=== PATIENT | female | born 1970 | race Caucasian/White ===

== ENCOUNTER 2018-09-27 08:49 | Emergency (ER) | payer MEDICARE, MEDICAID ==
[2018-09-27] MEDS ORDERED: NS 0.9% 1000 ML** 1,000 ML IV ONE (08:50)
--- NOTE | 2018-09-27 08:56 | ED ---
Neurological HPI - HPI Summary HPI Summary: ED provider met patient and EMS at bedside upon arrival in room 16. LEVEL 5 CAVEAT: HPI LIMITED DUE TO PATIENT CONDITION, UNRESPONSIVE. A 48 y/o F presents to ED mostly unresponsive s/p LOC. Per EMS: Pt has had no recent illness nor trauma, but has had a BEEBE for past 5 days. En route, her BP was 140s/90s and O2 sat was 100% on room air. Her pupils were sluggish and mildly dilated. Pt is responsive to painful stimuli, family says she walked to the living room at approx 0740. Per family, pt has L-sided weakness due to a fall and neck injury at 5 years of age. Her last migraine was in June 2018. She's been taking migraine medication since. Other medications include Lamictal. Family lives with her. She walked from the bathroom to the living room and became unresponsive sitting on the sofa, where family found her. Associated sx: vomiting. She sees Dr. Nuno, neurologist. The family did notify him this AM. PMHx: migraines, sz. 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, EMS Onset/Duration: Still Present Timing: Constant Current Severity: Severe Character: Other: - unresponsive Associated Signs and Symptoms: Positive: Nausea/Vomiting - Allergy/Home Medications Allergies/Adverse Reactions: Allergies Allergy/AdvReac Type Severity Reaction Status Date / Time No Known Allergies Allergy Verified 07/16/18 10:10 Home Medications: Home Medications Lacosamide TAB* [Vimpat TAB*] 50 mg PO BID 09/27/18 [History Confirmed 09/27/18] SUMAtriptan TAB* [Imitrex TAB*] 50 mg PO DAILY PRN 09/27/18 [History Confirmed 09/27/18] PMH/Surg Hx/FS Hx/Imm Hx Previously Healthy: No Endocrine/Hematology History: Denies: Hx Diabetes Cardiovascular History: Denies: Hx Hypertension, Hx Pacemaker/ICD History: Denies: Hx Dialysis, Hx Renal Disease Sensory History: Denies: Hx Hearing Aid Neurological History: Reports: Hx Migraine, Hx Seizures Psychiatric History: Denies: Hx Panic Disorder - Cancer History Hx Chemotherapy: No Hx Radiation Therapy: No - Surgical History Surgery Procedure, Year, and Place: LEFT FOOT SX - Family History Family History: neg: Breast CA - Social History Occupation: Employed Full-time Lives: With Family Review of Systems - ROS Summary Review of Systems Summary: LEVEL 5 CAVEAT: ROS LIMITED DUE TO PATIENT CONDITION, UNRESPONSIVE. Positive: Vomiting Positive: Syncope - LOC All Other Systems Reviewed And Are Negative: No Physical Exam - Summary Physical Exam Summary: VITAL SIGNS: Reviewed. GENERAL: Patient is a well-developed and nourished FEMALE who is unresponsive in stretcher. Patient is not in any acute respiratory distress. HEAD AND FACE: No signs of trauma. No ecchymosis, hematomas or skull depressions. No sinus tenderness. EYES: Pupils are reactive. No injected conjunctiva, no nystagmus. EARS: Hearing grossly intact. Ear canals and tympanic membranes are within normal limits. MOUTH: Oropharynx within normal limits. NECK: Supple, trachea is midline, no adenopathy, no JVD, no carotid bruit, no c- spine tenderness, neck with full ROM. No meningeal signs, no Kernig's or Brudzinskis signs. CHEST: Symmetric, no tenderness at palpation LUNGS: Clear to auscultation bilaterally. No wheezing or crackles. CVS: Regular rate and rhythm, S1 and S2 present, no murmurs or gallops appreciated. ABDOMEN: Soft, non-tender. No signs of distention. No rebound, no guarding, and no masses palpated. Bowel sounds are normal. EXTREMITIES: FROM in all major joints, no edema, no cyanosis or clubbing. NEURO: Unresponsive. L-sided weakness with LUE and LLE muscular atrophy secondary to her chronic weakness. Does not follow commands. Responsive to painful stimuli. SKIN: Dry and warm GCS: 9 Triage Information Reviewed: Yes Vital Signs Reviewed: Yes Diagnostics - Laboratory Result Diagrams: 09/27/18 09:08 09/27/18 09:08 Lab Statement: Any lab studies that have been ordered have been reviewed, and results considered in the medical decision making process. - Radiology CXR Radiology Interpretation Completed By: Radiologist Summary of Radiographic Findings: IMPRESSION: #. No evidence for acute intrathoracic disease. ED provider has reviewed this report. - CT BRAIN CT Interpretation Completed By: Radiologist Summary of CT Findings: IMPRESSION: #. No CT evidence for intracranial hemorrhage or acute intracranial process. #. 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 ED provider has reviewed this report. - EKG 0818 Cardiac Rate: NL - 82 bpm EKG Rhythm: Sinus Rhythm Summary of EKG Findings: No ST elevation. NIH Scale - NIH Scale Level of Consciousness: Repeated or Painful Stimulation Ask Patient the Month and His/Her Age: Neither Correct/Aphasic Ask Pt to Open/Close Eyes and Leather Coater/Release Non-Paretic Hand: Neither Correctly Best Gaze (Only Horizontal Eye Movement): Normal Visual Field Testing: No Visual Loss - unable to assess Facial Paresis-Pt to Smile & Close Eyes or Grimace Symmetry: Normal/Symmetrical Motor Function - Right Arm: No Drift-Holds 10 Seconds Motor Function - Left Arm: No Movement Motor Function - Right Leg: No Drift-Holds 10 Seconds Motor Function - Left Leg: No Movement Limb Ataxia-Must be out of Proportion to Weakness Present: Present in Two Limbs Sensory (Use Pinprick to Test Arms/Legs/Trunk/Face): Severe to Total Loss - unable to assess Best Language (Describe Picture, Name Items): Mute/Global Aphasia Dysarthria (Read Several Words): Unintelligible or Mute Extinction and Inattention: Inattention Total Score: 24 NIH Stroke Scale Comment: Patient does not follow commands, is unresponsive. Re-Evaluation - Re-Evaluation 1 Re-Evaluation Time: 11:00 Change: Improved Comment: Pt is now A&Ox3. Pt c/o BEEBE rated 7 out of 10. 2 Re-Evaluation Time: 13:45 Change: Improved Comment: Pt is feeling better, will d/c home. Course/Dx - Course Assessment/Plan: This patient is a 48-year-old female who presents to the emergency room via ambulance with a chief complaint of a syncopal episode versus a seizure episode. EMS reports that the patient may have had a seizure episode this morning. However the family members report that she woke up and was complaining of a headache. The patient is complaining of a headache for approximately one week. The patient has history of migraine headaches. She woke up with a headache and then she was found on the couch unresponsive and they have not seen any type of seizures. In the ED course, the patient continues to be unresponsive. She is only responsive to painful stimuli. She has her left-sided weakness which family members report that is chronic since she was 5 years old. She also has atrophy of the left upper extremity and left lower extremity. Because the patient had a left-sided weakness and we did not have more information, we called a Code Arango. However, as the family members explained, the patient had a left-sided weakness chronically since she was 5 years old, we discontinued the code mcneal. At approximately 10:30 the patient is alert and oriented. Initially she was in a postictal state. We did send levels for lamotrigine and Vimpat. Head CT IMPRESSION: #. No CT evidence for intracranial hemorrhage or acute intracranial process. #. 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 CXR IMPRESSION: #. No evidence for acute intrathoracic disease. Patient continues to have a headache therefore the patient was given IV fluids, Toradol, Reglan and Benadryl. After an hour and reassessed the patient and she continues to have a headache therefore the patient was given 1 dose of fentanyl. After these medications of her symptoms have resolved. I discussed my physical exam and findings with Dr. Devlin, neuro, who doesnt want to have any changes in medications he only recommended to follow-up with Dr. Nuno, neuro, next week. I discussed the findings, test results and recommendations from Dr. Devlin with the patient and the patients sister and they also agree. Therefore the patient will be discharged home with follow-up with Dr. Nuno. The patient is hemodynamically stable alert and oriented 3. - Diagnoses Provider Diagnoses: Seizure During the Visit The Following Alert/Code Occurred: Code Arango - CODE MCNEAL: Called at 0748. (DST not implemented in ED clocks, true time is 08:48am.) - Physician Notifications Discussed Care Of Patient With: Paco Quinteros - radiology Time Discussed With Above Provider: 09:14 Instructed by Provider To: Other - Discussing CT results. Discharge - Sign-Out/Discharge Documenting (check all that apply): Patient Departure - D/C Patient Received Moderate/Deep Sedation with Procedure: No - Discharge Plan Condition: Stable Disposition: HOME Prescriptions: Ondansetron TAB* [Zofran 4 MG Tab*] 4 mg PO Q8HR PRN #10 tab PRN Reason: Nausea Patient Education Materials: Recurrent Seizures in Adults (ED) Referrals: Rivas Wallace MD [Medical Doctor] - Additional Instructions: Follow up with your neurologist, Dr. Nuno, in 2-3 days. Continue taking your current medications as prescribed. RETURN TO THE ED FOR ANY WORSENING OR NEW SYMPTOMS. - Billing Disposition and Condition Condition: STABLE Disposition: Home - Attestation Statements Document Initiated by Chris: Yes Documenting Scribe: Gilson Perdomo Provider For Whom Nataliaibe is Documenting (Include Credential): Dr. Paco Decker MD Scribe Attestation: I, Gilson Perdomo, scribed for Dr. Paco Decker MD on 09/27/18 at 1829. Scribe Documentation Reviewed: Yes Provider Attestation: The documentation as recorded by the Gilson roberts accurately reflects the service I personally performed and the decisions made by me, Dr. Paco Decker MD Status of Scribe Document: Viewed Consult Consult: 1303: Consult with Dr. Devlin, neuro Recommends opiates and see if her migraine improves. No neuro recommendations, continue with same medications.
[2018-09-27 09:17] LABS: Hematocrit 43 % (35-47); Hemoglobin 14.3 g/dl (12.0-16.0); Mean Corpuscular HGB Conc 33 g/dl (31-36); Mean Corpuscular Hemoglobin 27 pg (27-31); Mean Corpuscular Volume 81 fL (80-97); Mean Platelet Volume 9.3 fL (7.4-10.4); Platelet Count 186 10^3/ul (150-450); Red Blood Count 5.39 10^6/ul (4.00-5.40); Red Cell Distribution Width 14 % (10.5-15); White Blood Count 4.6 10^3/ul (3.5-10.8)
[2018-09-27 09:27] LABS: Activated Partial Thrombo Time 29.2 seconds (26.0-36.3); INR 0.99 (0.77-1.02)
[2018-09-27 09:37] LABS: Albumin 4.3 g/dL (3.2-5.2); Albumin/Globulin Ratio 1.2 (1-3); BUN/Creatinine Ratio 13.3 (8-20); Calcium 9.3 mg/dL (8.6-10.3); EGFR African American 100.7 (>60); EGFR Non-African American 83.2 (>60); Globulin 3.5 g/dL (2-4); HDL Cholesterol 108.9 mg/dL; Potassium 3.5 mmol/L (3.5-5.0); Total Bilirubin 0.5 mg/dL (0.2-1.0); Total Protein 7.8 g/dL (6.4-8.9)
[2018-09-27 10:05] LABS: ABS Basophils 0 10^3/ul (0-0.2); ABS Eosinophils 0.2 10^3/ul (0-0.6); ABS Monocytes 0.2 10^3/ul (0-0.8); ABS Neutrophils 3.1 10^3/ul (1.5-7.7); ABS Nucleated RBC 0 10^3/ul; Eosinophil % 4.7 %; Lymphocyte % 22.7 %; Nucleated Red Blood Cells % 0
[2018-09-27 10:26] LABS: Urine Appearance Cloudy; Urine Bacteria Absent (Absent); Urine Bilirubin Negative (Negative); Urine Blood 3+ (Negative); Urine Color Yellow; Urine Glucose Negative (Negative); Urine Ketones Trace (Negative); Urine Nitrite Negative (Negative); Urine Protein Negative (Negative); Urine Red Blood Cell 3+(>10/hpf) (Absent); Urine Specific Gravity 1.008 (1.010-1.030); Urine Squamous Epithelial Cell Present (Absent); Urine Urobilinogen Negative (Negative); Urine White Blood Cell Trace(0-5/hpf) (Absent)
[2018-09-27] MEDS ORDERED: Metoclopramide IV* 5 MG/ML 2 ML VIAL IV PRN (11:00)
[2018-09-27] MEDS ORDERED: Ketorolac INJ* 30 MG/ML 1 ML VIAL IV PUSH ONE (11:00)
[2018-09-27] MEDS ORDERED: fentaNYL* 50 MCG/ML 2 ML VIAL (100 MCG VIAL) IV SLOW PU ONE (12:53)
[2018-09-27 15:02] VITALS: BP 130/90
[2018-09-27] MEDS ORDERED: Ondansetron ODT TAB* 4 MG ONE (15:05)
[2018-09-27] MEDS ORDERED: Ondansetron ODT TAB* 4 MG SL PRN (15:05)
[2018-09-30 12:59] LABS: Lacosamide 3.3 mcg/mL (1.0 - 10.0)
[2018-09-30 15:16] LABS: Lamotrigine 26.3 mcg/mL (2.5 - 15.0)
== END 2018-09-27 15:01 | disposition home or self-care (01) ==
LOC: ED 08:49
DX: G40.909 Epilepsy, unspecified, not intractable, without status epilepticus (principal)
CPT/HCPCS: 36415; 70450; 71045; 80053; 80061; 80175; 80299; 81003; 81015; 83605; 84484; 85025; 85610; 85730; 86850; 86900; 86901; 87086; 93005; 96361; 96374; 96375; 99285; A9270-GY; J1885; J2765; J3010

== ENCOUNTER 2018-09-28 10:10 | Emergency (ER) | payer MEDICARE, MEDICAID ==
--- NOTE | 2018-09-28 12:34 | ED ---
Headache - HPI Summary HPI Summary: Pt. is a 48 y.o female who presents to the ER for ongoing headache. Pt. has a hx of remote neck injury, chronic left sided weakness, seizure d/o, and migraines. Pt. was seen in the ED yesterday for similar symptoms. Yesterday, pt. had labs and brain ct which were all unremarkable. She was given migraine cocktail, was feeling better and dc home. Family state that she started with h/ a last night and vomiting. She has been unable to tolerate seizure medications. Pt.'s follows with Dr. Nuno neuro., outpt. Family called office and was informed to come to ED to see Dr. Devlin. SXs are moderate in severity. NO current modifying factors. No report of recent illness, fever, neck pain, abd. pain, urinary sxs. - History Of Current Complaint Chief Complaint: EDHeadache Stated Complaint: "REALLY BAD MIGRAINE" PER PT SISTER Time Seen by Provider: 09/28/18 12:31 Hx Obtained From: Family/Activity Therapy Specialist - Allergies/Home Medications Allergies/Adverse Reactions: Allergies Allergy/AdvReac Type Severity Reaction Status Date / Time No Known Allergies Allergy Verified 07/16/18 10:10 PMH/Surg Hx/FS Hx/Imm Hx Previously Healthy: Yes Endocrine/Hematology History: Denies: Hx Diabetes Cardiovascular History: Reports: Other Cardiovascular Problems/Disorders - HX OF SEIZURES Denies: Hx Hypertension, Hx Pacemaker/ICD History: Denies: Hx Dialysis, Hx Renal Disease Sensory History: Denies: Hx Hearing Aid Neurological History: Reports: Hx Migraine, Hx Seizures Psychiatric History: Denies: Hx Panic Disorder - Cancer History Hx Chemotherapy: No Hx Radiation Therapy: No - Surgical History Surgery Procedure, Year, and Place: LEFT FOOT SX Infectious Disease History: No Infectious Disease History: Denies: Traveled Outside the [place] in Last 30 Days - Family History Known Family History: Positive: Non-Contributory Family History: neg: Breast CA - Social History Occupation: Unemployed Lives: With Family Alcohol Use: None Substance Use Type: Reports: None Smoking Status (MU): Never Smoked Tobacco Review of Systems Constitutional: Negative Negative: Fever Eyes: Negative ENT: Negative Cardiovascular: Negative Respiratory: Negative Positive: Vomiting, Nausea. Negative: Abdominal Pain Genitourinary: Negative Musculoskeletal: Negative Skin: Negative Positive: Headache All Other Systems Reviewed And Are Negative: Yes Physical Exam Triage Information Reviewed: Yes Vital Signs On Initial Exam: Initial Vitals Temp Pulse Resp BP Pulse Ox 97.8 F 84 18 138/97 99 09/28/18 10:15 09/28/18 10:15 09/28/18 10:15 09/28/18 10:15 09/28/18 10:15 Vital Signs Reviewed: Yes Appearance: Positive: Well-Appearing - Pt. lying in bed in NAD. Chronic weakness and muslce wasting to left side. Family present. Skin: Positive: Warm, Dry Head/Face: Positive: Normal Head/Face Inspection Eyes: Positive: EOMI, Other: - chronic dilated pupil on Left Neck: Positive: Supple. Negative: Nuchal Rigidity Respiratory/Lung Sounds: Positive: Clear to Auscultation, Breath Sounds Present Cardiovascular: Positive: Normal, RRR Musculoskeletal: Positive: Other - Chronic weakness and atrophy on left Neurological: Positive: Normal, CN Intact II-III Psychiatric: Positive: Affect/Mood Appropriate Diagnostics - Vital Signs Vital Signs Temp Pulse Resp BP Pulse Ox 09/28/18 12:11 97.2 F 75 18 150/97 98 09/28/18 10:15 97.8 F 84 18 138/97 99 - Laboratory Lab Statement: Any lab studies that have been ordered have been reviewed, and results considered in the medical decision making process. Headache Course/Dx - Course Course Of Treatment: Pt. presenting for ongoing headaches and N/V. She is afebril with stable VS. She has no new neurological deficits on exam. Dr. Devlin, neurologist, was consulted and examined pt. in the ED. He is concered with ongoing vomiting and inability to take seizure medications. Pt. given IV fluids, zofran, magnesium and toradol per Dr. Devlin. Pt. did seem to have good relief of her h/a. She is tolerating PO fluids in ED and has had no further vomiting. Pt. reassessed by Dr. Devlin. He would like pt. dc home and started on topimax. To continue all other home medications. Pt. will f.u with Dr. Nuno outpt. To return to ER if sxs change or worsen. Family understands and agrees with plan. - Diagnoses Differential Diagnosis/HQI/PQRI: Meningitis, Migraine, Viral Syndrome Provider Diagnoses: Cephalgia Discharge - Sign-Out/Discharge Documenting (check all that apply): Patient Departure Patient Received Moderate/Deep Sedation with Procedure: No - Discharge Plan Condition: Improved Disposition: HOME Prescriptions: Topiramate TAB(*) [Topamax 25 MG tab] 50 mg PO BID #40 tab Patient Education Materials: Acute Headache (ED) Referrals: Perry Nuno MD [Medical Doctor] - Criss Rosales MD [Primary Care Provider] - Additional Instructions: Follow up with Dr. Nuno as scheduled Start topiramate today as directed Continue home medications as directed Return to ER if symptoms change or worsen - Billing Disposition and Condition Condition: IMPROVED Disposition: Home
[2018-09-28] MEDS ORDERED: NS 0.9% 1000 ML** 1,000 ML IV ONE (13:04)
[2018-09-28] MEDS ORDERED: Ondansetron INJ* 2 MG/ML VIAL IV ONE (13:04)
[2018-09-28] MEDS ORDERED: Magnesium Sulfate 1 GM IV* 1 GM/100 ML BAG IV ONE (13:19)
[2018-09-28] MEDS ORDERED: Ketorolac INJ* 15 MG/ML 1 ML VIAL IM ONE (13:20)
[2018-09-28] MEDS ORDERED: Topiramate TAB(*) 25 MG PO ONE (13:21)
--- NOTE | 2018-09-28 15:00 | CONS ---
NEUROLOGY CONSULTATION: DATE OF CONSULT: 09/28/18 LOCATION: She is in the emergency room. REFERRING PROVIDER: BETTIE Carmichael CHIEF COMPLAINT: Headaches, vomiting, epilepsy. HISTORY OF PRESENT ILLNESS: Charlie Hansen is a 48-year-old developmentally handicapped woman w ith a history of epilepsy and headaches, who is followed by Dr. Nuno in our office. She was here yes terday with a severe headache and an episode of unresponsiveness at home. She was accompanied by her sister and a friend. She presented to the emergency room and was treated with ketorolac and metoclo pramide. She felt better and was discharged home. This morning, she again had a bad headache. She t ook her morning medicine at about 6:30 according to her sister. Her sister went out to do errands and when she came back around 8, the patient had a severe headache and was vomiting. She thinks she pro bably vomited up her morning medications. She has been on lamotrigine 350 mg twice per day for quite a while and Vimpat was started last February 50 mg b.i.d. In the past, she has been on Dilantin. She has frequent headaches, but it is hard to pin them down on it. She will go maybe a week without one it sounds like, but gets headaches otherwise several days per week. At home, she has sumatriptan an d Zofran which she was prescribed this past year. When she gets headaches, she gets photophobic and sonophobic. She is nauseous and vomits at least a few times a month. Sumatriptan dulls the headache s, but does not get rid of them. PAST MEDICAL HISTORY: Notable for epilepsy through her entire adult life. 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 Other than epilepsy and her developmental handicaps, she does not have any chronic me dical illnesses. MEDICATIONS AT HOME: 1. Imitrex tablets 50 mg b.i.d. as needed for headache. 2. Zofran 4 mg p.o. q.8 hours as needed for nausea. 3. Lamictal 350 mg p.o. b.i.d. 4. Vimpat 50 mg p.o. b.i.d. 5. Clonazepam 0.5 mg p.o. b.i.d. ALLERGIES: She does not have any drug allergies. REVIEW OF SYSTEMS: Negative for chills or fevers. No recent sore throats. Over than vomiting and n ausea, no intestinal issues. She has very poor vision in the left eye chronically since . She has not had any recent falls or injuries. PHYSICAL EXAM: Her temperature is 97.2, blood pressure 150/97, heart rate is in the 70s and regular. Respiratory rate is 18 and oxygen saturation is 98% on room air. Heart is in a regular rhythm with out murmurs. Neck is supple. There are no cervical bruits. Oral mucosa is moist. She became nause ous and had to vomit and so I truncated the exam. She is alert and cooperative, but needs some inter pretation through her sister. LABORATORY DATA: Laboratory data from yesterday is notable for a normal CBC, normal INR and PTT, oscar kvng profile notable for AST of 50 and ALT of 53. Chemistries yesterday otherwise normal. Urinalys is from yesterday notable for 3+ blood, 1+ leukocyte esterase, trace white blood cells. IMPRESSION AND PLAN: Impression is that of status migrainosus in a patient with epilepsy. She is vo miting and so is at risk of seizures being precipitated. I talked with her sister at some length and suggested we start Vatsana on topiramate. I told her it could be effective for both seizure preventi on and migraines. I warned her of potential side effects including weight loss, paresthesias, kidney stones. We will give her some IV ketorolac, Zofran, and fluids. I will put in for a lamotrigine le linette. I would continue Vimpat and lamotrigine for now. I will notify Dr. Nuno of her ER visit upon h is return. [id number]/[facility] #: [id number]
[2018-09-28 16:00] VITALS: BP 132/88
== END 2018-09-28 15:59 | disposition home or self-care (01) ==
LOC: ED 10:10
DX: M54.2 Cervicalgia (principal); R51 Headache; R11.2 Nausea with vomiting, unspecified
CPT/HCPCS: 96361; 96365; 96372; 96375; 99283; A9270-GY; J1885; J2405; J3475

== ENCOUNTER 2023-06-03 11:32 | Observation (INO) ==
[~2023-06-03 11:32] MED LIST: Buffered Lidocaine 1% SYRIN 1 ml INTRADERM ONE; HYDROmorphone 1 MG/1 ML SYRINGE IV PRN; Lactated Ringers 1000 ml BAG 1,000 ML IV SCH; Naloxone 0.4 mg VIAL 0.4 mg/ml 1 ml VIAL IV PRN; Ondansetron 4 mg VIAL 2 MG/ML 2 ml VIAL IV PRN; fentaNYL 100 mcg/2 ml 50 MCG/ML VIAL IV PRN
[2023-06-03] MEDS ORDERED: ceFAZolin 2 GM in NS PREMIX 2 GM/100 ML BAG IVPB ONE (13:04)
[2023-06-03] MEDS ORDERED: Dexmedetomidine 200 mcg/2 ml 2 ml VIAL (200 mcg) ONE (14:15)
[2023-06-03] MEDS ORDERED: Bupivacaine 0.5% SDV PF 30ML VIAL ONE ×2 (14:15→15:31)
[2023-06-03] MEDS ORDERED: Midazolam 2 mg/2 ml VIAL 1 mg/ml 2 ml VIAL (2 mg) ONE (14:16)
[2023-06-03] MEDS ORDERED: Ondansetron 4 mg VIAL 2 MG/ML 2 ml VIAL ONE (14:16)
[2023-06-03] MEDS ORDERED: fentaNYL 100 mcg/2 ml 50 MCG/ML VIAL ONE (14:16)
[2023-06-03] MEDS ORDERED: Propofol 10 MG/ML 20 ML BTL ONE (14:16)
[2023-06-03] MEDS ORDERED: Dexamethasone IV 4 MG/ML VIAL 1 ml VIAL ONE (14:16)
[2023-06-03] MEDS ORDERED: Lidocaine 1% w EPI 1:200,000 SDV 30 ML VIAL ONE (15:31)
[2023-06-03] MEDS ORDERED: Tranexamic Acid 1 GM/100ML BAG 2,000 MG/200 ML BAG IV ONE (17:07)
[2023-06-03] MEDS ORDERED: Magnesium Hydroxide LIQ 30 ML UDC PO PRN (18:07)
[2023-06-03] MEDS ORDERED: Morphine 2 MG/ML SYRINGE IV PRN (18:07)
[2023-06-03] MEDS ORDERED: Ondansetron 4 mg VIAL 2 MG/ML 2 ml VIAL IV PRN (18:07)
[2023-06-03] MEDS ORDERED: Lactulose 30 ml UDC PO PRN (18:07)
[2023-06-03] MEDS ORDERED: Ondansetron ODT 4 mg TAB 4 MG TAB PO PRN (18:07)
[2023-06-03] MEDS ORDERED: Lactated Ringers 1000 ml BAG 1,000 ML IV SCH (19:00)
[2023-06-03] MEDS ORDERED: ceFAZolin VIAL VIAL ONE (19:12)
[2023-06-03] MEDS ORDERED: Sodium Chloride 0.9% 20 ML ONE (19:12)
[2023-06-03] MEDS ORDERED: Sodium Chloride 0.9% 10 ML ONE (19:13)
[2023-06-03] MEDS ORDERED: Phenytoin 100 mg ER CAP PO ONE (21:36)
[2023-06-03 21:48] LABS: Rapid COVID-19 Molecular Undetected (Undetected)
[2023-06-04] MEDS: Magnesium Hydroxide LIQ 30 ML UDC PO SCH ×2 (00:04→08:28)
[2023-06-04] MEDS: CMCS: CloBAZam 10 mg TAB (NF) PO SCH ×2 (01:12→10:10)
[2023-06-04] MEDS: ceFAZolin 1 GM ADVAN 1 GM in NS 0.9% 50 ML 50 ML IVPB SCH ×2 (01:57→08:51)
[2023-06-04 07:01] LABS: Hematocrit 33.5 % (35-45); Mean Platelet Volume 8.5 fL (7.5-11.2); Platelet Count 213 10^3/uL (150-450)
[2023-06-04 07:12] LABS: Calcium 8.6 mg/dL (8.6-10.3); Creatinine, Serum 0.86 mg/dL (0.51-0.95); Potassium 3.7 mmol/L (3.5-5.0); eGFR CKD-EPI 81.7 (>60)
[2023-06-04] MEDS ORDERED: CMCS:Zonisamide 100 mg CAP (NF) PO SCH ×2 (07:30→19:30)
[2023-06-04] MEDS ORDERED: Vitamin THERAPEUTIC TAB PO SCH (09:00)
[2023-06-04] MEDS ORDERED: Phenytoin 100 mg ER CAP PO SCH ×2 (09:00→21:00)
[2023-06-04 09:59] VITALS: BP 110/75
[2023-06-04] MEDS ORDERED: Enoxaparin 40 MG/0.4 ML SYR SUBCUT SCH (12:00)
[2023-06-05] MEDS ORDERED: NF:UBROGEPANT 50 MG TABLET PO SCH (09:00)
== END 2023-06-04 13:15 | disposition home or self-care (01) ==
LOC: MED 11:32 → OR 11:32
PROVIDERS: ADMIT Orthopaedic Surgery Sports Medicine; ATTEND Orthopaedic Surgery Sports Medicine